=== PATIENT | male | born 1995 | race Caucasian/White ===

== ENCOUNTER 2017-05-26 18:49 | Emergency (ER) | payer SELFPAY ==
[~2017-05-26] VITALS: Ht 180.3 cm; Wt 90.7 kg
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
[2017-05-26] MEDS ORDERED: HYDROcodone/APAP 7.5 MG/325 MG (LORTAB, LORCET PLUS) TABLET PO STA (20:18)
[2017-05-26] MEDS ORDERED: HYDR-3812 PO (20:22)
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
[2017-05-26] MEDS ORDERED: RX-HYDROCODONE/APAP 5/325 MG #4 TAB PK PO PRN (20:30)
[2017-05-26 20:33] VITALS: BP 0/0
== END 2017-05-26 20:33 | disposition home or self-care (01) ==
LOC: ER 18:52
DX: S83.511A Sprain of anterior cruciate ligament of right knee, initial encounter (principal); S83.411A Sprain of medial collateral ligament of right knee, initial encounter; F12.90 Cannabis use, unspecified, uncomplicated; V86.56XA Driver of dirt bike or motor/cross bike injured in nontraffic accident, initial encounter
CPT/HCPCS: 73562; 99283

== ENCOUNTER → 2017-06-03 | Outpatient (CLI) | payer OTHER ==
[~2017-06-03] MED LIST: HYDR-3812 PO
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
== END ==
LOC: RAD 13:05
PROVIDERS: ATTEND Nurse Practitioner Family
DX: S83.421A Sprain of lateral collateral ligament of right knee, initial encounter (principal); S76.111A Strain of right quadriceps muscle, fascia and tendon, initial encounter; S83.271A Complex tear of lateral meniscus, current injury, right knee, initial encounter; S83.241A Other tear of medial meniscus, current injury, right knee, initial encounter; S80.01XA Contusion of right knee, initial encounter; V29.9XXA Motorcycle rider (driver) (passenger) injured in unspecified traffic accident, initial encounter; Y92.410 Unspecified street and highway as the place of occurrence of the external cause; Y99.8 Other external cause status
CPT/HCPCS: 73721

== ENCOUNTER 2017-09-29 08:34 | Outpatient (RCR) | payer OTHER ==
[~2017-09-29 08:34] MED LIST changes: +ACHD5005 PO; -HYDR-3812 PO
== END 2017-10-09 | disposition home or self-care (01) ==
PROVIDERS: ATTEND Orthopaedic Surgery
DX: M23.611 Other spontaneous disruption of anterior cruciate ligament of right knee (principal)

== ENCOUNTER 2019-05-01 11:45 | Emergency (ER) | payer SELFPAY ==
[~2019-05-01] VITALS: Ht 177.8 cm; Wt 90.9 kg
--- NOTE | 2019-05-01 12:17 | ED General ---
General Chief Complaint: General Problems/Pain Stated Complaint: HEAT RELATED INJ Nursing Triage Note: Pt to ED via EMS. Pt reports working in the heat this morning and then feeling weak, and having numbness and tingling in extremities. Pt reports cramping and vision changes. Pt reports vomiting once. Pt reports feeling as if even could have been a panic attack although pt denies having a hx of panic attacks. Pt also reports coughing up brown mucous since this weekend. Nursing Sepsis Screen: No Definite Risk Source of Information: Patient Exam Limitations: No Limitations History of Present Illness Date Seen by Provider: May 01, 2019 Time Seen by Provider: 12:05 Initial Comments 23-year-old male who is brought in by [facility] after having what he thought was a panic attack while at work this morning. He reports that he started hyperventilating and started to have tunnel vision and called 911. He reports that he has had a viral gastroenteritis this weekend that his girlfriend also had which caused him to have nausea and vomiting. He did vomit 3 times this morning while at work. He denies fevers, he is alert and oriented on arrival to the emergency room, he denies any symptoms at this time. Timing/Duration: 1-2 Days Associated Systoms: Nausea/Vomiting Allergies and Home Medications Allergies Coded Allergies: No Known Drug Allergies (Unverified , 05/26/17) Home Medications Hydrocodone Bit/Acetaminophen 1 Each Tablet, 1 EACH PO Q6H PRN for PAIN Prescribed by: RUPAL CANTU on 05/26/172021 Ondansetron 8 Mg Tab.rapdis, 8 MG PO Q6H PRN for NAUSEA/VOMITING Prescribed by: GLORIA ASKEW on 05/01/19 1253 Patient Home Medication List Home Medication List Reviewed: Yes Review of Systems Review of Systems Constitutional: see HPI; No chills, No fever Gastrointestinal: see HPI, nausea, vomiting Psychiatric/Neurological: See HPI, Anxiety All Other Systems Reviewed Negative Unless Noted: Yes Past Oenonvb-Nhqabs-Paermc Hx Past Med/Social Hx: Reviewed Nursing Past Med/Soc Hx Patient Social History 2nd Hand Smoke Exposure: No Recent Foreign Travel: No Contact w/Someone Who Travel: No Recent Infectious Disease Expo: No Recent Hopitalizations: No Past Medical History Surgeries: Yes (HERNIA REPAIR) Respiratory: No Cardiac: No Neurological: No Genitourinary: No Gastrointestinal: No Musculoskeletal: No Endocrine: No HEENT: No Cancer: No Psychosocial: No Blood Disorders: No Family Medical History Reviewed Nursing Family Hx Physical Exam Vital Signs Vital Signs - First Documented 05/01/19 11:47 Temp 36.9 Pulse 93 Resp 18 B/P (MAP) 120/72 (88) Pulse Ox 97 O2 Delivery Room Air Capillary Refill : Less Than 3 Seconds Height, Weight, BMI Height: 5'11.00" Weight: 200lbs. oz. 90.986808de; 28.00 BMI Method:Stated General Appearance: No Apparent Distress, WD/WN Eyes: Bilateral Eye Normal Inspection, Bilateral Eye PERRL, Bilateral Eye EOMI HEENT: PERRL/EOMI, TMs Normal, Normal ENT Inspection, Pharynx Normal Respiratory: Chest Non Tender, Lungs Clear, Normal Breath Sounds, No Accessory Muscle Use, No Respiratory Distress Cardiovascular: Regular Rate, Rhythm, No Edema, No Gallop, No JVD, No Murmur, Normal Peripheral Pulses Neurologic/Psychiatric: Alert, Oriented x3, Normal Mood/Affect Skin: Normal Color, Warm/Dry Progress/Results/Core Measures Suspected Sepsis Recent Fever Within 48 Hours: No Infection Criteria Present: None New/Unexplained Altered Menta: No Sepsis Screen: No Definite Risk SIRS Temperature: Pulse: 93 Respiratory Rate: 18 Laboratory Tests 05/01/19 11:50: White Blood Count 11.0 Blood Pressure 120 /72 Mean: 88 Laboratory Tests 05/01/19 11:50: Creatinine 1.43H, Platelet Count 209, Total Bilirubin 1.6H Results/Orders Lab Results Laboratory Tests Test 05/01/19 11:50 Range/Units White Blood Count 11.0 4.3-11.0 10^3/uL Red Blood Count 5.34 4.35-5.85 10^6/uL Hemoglobin 16.0 13.3-17.7 G/DL Hematocrit 42 40-54 % Mean Corpuscular Volume 79 L 80-99 FL Mean Corpuscular Hemoglobin 30 25-34 PG Mean Corpuscular Hemoglobin Concent 38 H 32-36 G/DL Red Cell Distribution Width 12.7 10.0-14.5 % Platelet Count 209 130-400 10^3/uL Mean Platelet Volume 9.4 7.4-10.4 FL Neutrophils (%) (Auto) 69 42-75 % Lymphocytes (%) (Auto) 23 12-44 % Monocytes (%) (Auto) 7 0-12 % Eosinophils (%) (Auto) 1 0-10 % Basophils (%) (Auto) 0 0-10 % Neutrophils # (Auto) 7.6 1.8-7.8 X 10^3 Lymphocytes # (Auto) 2.5 1.0-4.0 X 10^3 Monocytes # (Auto) 0.8 0.0-1.0 X 10^3 Eosinophils # (Auto) 0.1 0.0-0.3 10^3/uL Basophils # (Auto) 0.0 0.0-0.1 10^3/uL Sodium Level 141 135-145 MMOL/L Potassium Level 3.3 L 3.6-5.0 MMOL/L Chloride Level 106 98-107 MMOL/L Carbon Dioxide Level 17 L 21-32 MMOL/L Anion Gap 18 H 5-14 MMOL/L Blood Urea Nitrogen 14 7-18 MG/DL Creatinine 1.43 H 0.60-1.30 MG/DL Estimat Glomerular Filtration Rate > 60 BUN/Creatinine Ratio 10 Glucose Level 97 70-105 MG/DL Calcium Level 11.1 H 8.5-10.1 MG/DL Corrected Calcium 8.5-10.1 MG/DL Total Bilirubin 1.6 H 0.1-1.0 MG/DL Aspartate Amino Transf (AST/SGOT) 20 5-34 U/L Alanine Aminotransferase (ALT/SGPT) 23 0-55 U/L Alkaline Phosphatase 71 40-136 U/L Total Protein 8.1 6.4-8.2 GM/DL Albumin 5.1 H 3.2-4.5 GM/DL My Orders Orders - GLORIA ASKEW Comprehensive Metabolic Panel (05/01/19 12:11) Ed Iv/Invasive Line Start (05/01/19 12:11) Cbc With Automated Diff (05/01/19 12:11) Ns Iv 1000 Ml (Sodium Chloride 0.9%) (05/01/19 12:30) Ns Iv 1000 Ml (Sodium Chloride 0.9%) (05/01/19 12:45) Vital Signs/I&O 05/01/19 14:39 Pulse 67 Resp 18 B/P (MAP) 123/88 Pulse Ox 98 O2 Delivery Room Air Capillary Refill : Less Than 3 Seconds Blood Pressure Mean: 88 Progress Note : Time: 12:51 Progress Note I have seen and evaluated the patient. I have informed him of his laboratory findings. He agrees with plan of care, plans for discharge, return precautions were given. Departure Impression Primary Impression: Panic attack Additional Impressions: Gastroenteritis Dehydration Disposition: HOME, SELF-CARE Condition: Stable/Unchanged Departure-Patient Inst. Decision time for Depature: 12:51 Referrals: UNKNOWN (PCP/Family) Primary Care Physician Patient Instructions: Panic Disorder (DC), Gastritis (DC) Add. Discharge Instructions: Take medication as directed. Drink plenty of fluids to stay hydrated. Follow-up with her primary care provider within 1 week for recheck. Return back to the emergency room for worsening symptoms or concerns as needed. All discharge instructions reviewed with patient and/or family. Voiced understanding. Scripts Ondansetron (Ondansetron Odt) 8 Mg Tab.rapdis 8 MG PO Q6H PRN for NAUSEA/VOMITING for 7 Days, #14 TAB Prov: GLORIA ASKEW 05/01/19 GLORIA ASKEW May 01, 2019 12:17
[2019-05-01 12:20] LABS: BASOPHILS % (AUTO) 0 % (0-10); EOSINOPHILS # (AUTO) 0.1 10^3/uL (0.0-0.3); EOSINOPHILS % (AUTO) 1 % (0-10); HEMATOCRIT 42 % (40-54); LYMPHOCYTES # (AUTO) 2.5 X 10^3 (1.0-4.0); LYMPHOCYTES % (AUTO) 23 % (12-44); MEAN CORPUSCULAR HEMOGLOBIN 30 PG (25-34); MEAN CORPUSCULAR HGB CONC 38 G/DL (32-36); MEAN CORPUSCULAR VOLUME 79 FL (80-99); MEAN PLATELET VOLUME 9.4 FL (7.4-10.4); MONOCYTES # (AUTO) 0.8 X 10^3 (0.0-1.0); MONOCYTES % (AUTO) 7 % (0-12); NEUTROPHILS # (AUTO) 7.6 X 10^3 (1.8-7.8); NEUTROPHILS % (AUTO) 69 % (42-75); PLATELET COUNT 209 10^3/uL (130-400); RED CELL DISTRIBUTION WIDTH 12.7 % (10.0-14.5)
[2019-05-01] MEDS ORDERED: NS IV 1000 ML 1,000 ML IV SCH ×2 (12:30→12:45)
[2019-05-01 12:35] LABS: ALANINE AMINOTRANSFERASE 23 U/L (0-55); ALBUMIN 5.1 GM/DL (3.2-4.5); ALKALINE PHOSPHATASE 71 U/L (40-136); BILIRUBIN,TOTAL 1.6 MG/DL (0.1-1.0); BUN/CREATININE RATIO 10; CALCIUM 11.1 MG/DL (8.5-10.1); CARBON DIOXIDE 17 MMOL/L (21-32); CHLORIDE 106 MMOL/L (98-107); CREATININE SERUM 1.43 MG/DL (0.60-1.30); GFR ESTIMATED > 60; GLUCOSE 97 MG/DL (70-105); POTASSIUM 3.3 MMOL/L (3.6-5.0); SODIUM 141 MMOL/L (135-145); TOTAL PROTEIN 8.1 GM/DL (6.4-8.2)
[2019-05-01] MEDS ORDERED: ONDA8TAB13 PO (12:53)
[2019-05-01 14:39] VITALS: BP 123/88
== END 2019-05-01 14:39 | disposition home or self-care (01) ==
LOC: EDUNIT# 11:45 → ER 11:46
DX: K52.9 Noninfective gastroenteritis and colitis, unspecified (principal); F41.0 Panic disorder [episodic paroxysmal anxiety]; E86.0 Dehydration; Z98.890 Other specified postprocedural states
CPT/HCPCS: 36415; 80053; 85025

== ENCOUNTER → 2019-11-02 | Outpatient (CLI) | payer OTHER ==
[~2019-11-02] MED LIST changes: +ONDA8TAB13 PO
--- NOTE | 2019-11-02 16:13 | Diagnostic Imaging Report ---
PROCEDURE: CT abdomen and pelvis without contrast. TECHNIQUE: Multiple contiguous axial images were obtained through the abdomen and pelvis without the use of intravenous contrast. Auto Exposure Controls were utilized during the CT exam to meet ALARA standards for radiation dose reduction. INDICATION: Periumbilical abdominal pain. Cramping for two months. Loose stools. COMPARISON: None. FINDINGS: The heart is unremarkable. The included lung bases are clear. The liver, spleen, pancreas, adrenal glands, and kidneys have a normal noncontrast CT appearance. There is no pathologically enlarged mesenteric or retroperitoneal adenopathy. The bowel loops are nondilated. The appendix is visualized in the right lower quadrant and has a normal appearance. There is no free fluid or free air. Chronic appearing height loss is seen at the superior endplate of L1. No acute osseous abnormalities are seen. The urinary bladder is mildly distended. There is no free air, loculated collection, or adenopathy in the pelvis. IMPRESSION: 1. No acute abnormalities are seen in the abdomen and pelvis. No evidence of bowel obstruction, free fluid, or free air. Dictated by: Dictated on workstation # [id number]
== END ==
LOC: RAD FS 15:47
PROVIDERS: ATTEND Nurse Practitioner
DX: K92.1 Melena (principal); R10.9 Unspecified abdominal pain
CPT/HCPCS: 74176

== ENCOUNTER 2022-08-17 06:34 | Outpatient (CLI) | payer OTHER ==
[~2022-08-17] VITALS: Ht 177.8 cm; Wt 95.5 kg
[2022-08-18] MEDS ORDERED: BUSP5TAB59 PO (12:12)
== END 2022-08-18 12:20 | disposition home or self-care (01) ==
LOC: PREOP 06:34
PROVIDERS: ATTEND Surgery
DX: Z01.818 Encounter for other preprocedural examination (principal)

== ENCOUNTER 2022-08-23 10:19 | Day surgery (SDC) | payer BC, OTHER ==
[~2022-08-23] VITALS: Ht 178 cm; Wt 95.5 kg
[~2022-08-23 10:19] MED LIST changes: +BUSP5TAB59 PO
[2022-08-23] MEDS ORDERED: LACTATED RINGERS 1,000 ML IV STA (10:24)
[2022-08-23] MEDS ORDERED: HURRICAINE EXT TUBE (BENZOCAINE) XX PRN (10:30)
[2022-08-23 10:45] VITALS: BP 120/80
--- NOTE | 2022-08-23 10:51 | Progress Note-Pre Operative ---
Pre-Operative Progress Note Date of Available H&P: Aug 03, 2022 Date H&P Reviewed: Aug 23, 2022 Time H&P Reviewed: 10:50 History & Physical: H&P Reviewed, Patient Examed, No changes noted Pre-Operative Diagnosis: rectal bleeding REINA MCRAE DO Aug 23, 2022 10:51
[2022-08-23] MEDS ORDERED: PROPOFOL INJECTION 50 ML IV ONE (10:55)
[2022-08-23 11:40] VITALS: BP 105/63
--- NOTE | 2022-08-23 11:42 | Progress Note-Post Operative ---
Post-Operative Progess Note Surgeon (s)/Pipe Machine Operator (s) Surgeon REINA MCRAE DO Pipe Machine Operator: KAYODE Avelar Pre-Operative Diagnosis rectal bleeding Post-Operative Diagnosis Cecal polyp int hemorrhoids Anal fissure Procedure & Operative Findings Date of Procedure 08/23/22 Procedure Performed/Findings Colonoscopy with snare polypectomy PROCEDURE NOTE: After informed consent was obtained, the patient was brought to the endoscopy suite, placed in bed in left lateral decubitus position. He was administered IV sedation by the MANAGER ENTERPRISE who then monitored his vitals the entire time, heart rate, blood pressure and pulse ox and the scope was inserted, pushed all the way to about 150 cm and pushed into the cecum, took a picture of appendiceal orifice and noted the ileocecal valve. Just outside cecal cap, saw a polyp, took a picture and then removed it with snare polypectomy. Then slowly withdrew the scope insufflating to look circumferentially at the giron starting in the cecum, up the ascending colon to the hepatic flexure, then down the transverse colon, splenic flexure, into the descending colon down into the sigmoid and then into the rectal vault and retroflexed the scope. Took a picture of the internal hemorrhoids. As I was pulling scope out I was able to jt the anus and saw a small anal fissure. Nothing else seen that could be a cause of rectal b leeding. The patient tolerated the procedure. He was recovered in endoscopy suite. Recommended for repeat colonoscopy in 5 years. Anesthesia Type IV sedation by MANAGER ENTERPRISE Estimated Blood Loss Estimated blood loss (mL): scant Specimens/Packing Specimens Removed cecal polyp REINA MCRAE DO Aug 23, 2022 11:42
--- NOTE | 2022-08-23 11:42 | Endoscopy Discharge Instruct ---
Endo Procedure/Findings Findings 1.: Polyp 2.: Internal Hemorrhoids 3.: Other Findings (anal fissure) Discharge Instructions - Activity: You might feel a little sleepy until tomorrow. This is due to the medicine you received to relax you. Until tomorrow, you should: NOT drive a car, operate machinery or power tools. NOT drink any alcoholic beverages. NOT make any important decisions or sign importortant papers. Do not return to work until tomorrow, unless otherwise instructed. Resume previous activities tomorrow. Diet: Start by taking liquids. If you tolerate liquids, advance to solid food. 1.: Colonscopy in 5 years Notify Physician - If you experience excessive bleeding, unusual abdominal pain, fever, or chest pain, contact your doctor immediately. REINA MCRAE DO Aug 23, 2022 11:42
[2022-08-23 11:45] VITALS: BP 102/66
--- NOTE | 2022-08-23 12:26 | Anesthesia-General Post-Op ---
MAC Patient Condition Mental Status/LOC: Same as Preop Cardiovascular: Satisfactory Nausea/Vomiting: Absent Respiratory: Satisfactory Pain: Controlled Complications: Absent Post Op Complications Complications None Follow Up Care/Instructions Patient Instructions None needed. Anesthesiology Discharge Order Discharge Order Patient is doing well, no complaints, stable vital signs, no apparent adverse anesthesia problems. No complications reported per nursing. JACOB PRO CRNA Aug 23, 2022 12:26
[2022-08-23 12:32] VITALS: BP 102/66
== END 2022-08-23 12:28 | disposition home or self-care (01) ==
LOC: ENDO 10:19
PROVIDERS: ATTEND Surgery
DX: D12.0 Benign neoplasm of cecum (principal); K64.8 Other hemorrhoids; K60.2 Anal fissure, unspecified; E66.9 Obesity, unspecified; Z68.30 Body mass index [BMI] 30.0-30.9, adult; Z28.310 Unvaccinated for COVID-19